=== PATIENT | male | born 1975 | race Caucasian/White ===

== ENCOUNTER 2021-01-13 14:03 | Emergency (ER) | payer OTHER, SELFPAY ==
[2021-01-13 14:22] VITALS: BP 165/89; PULSE 56; RESP 14; TEMP 36.6; O2SAT 97; BMI 28.7
[2021-01-13] MEDS: tetanus-diphtheria tox (adult) 0.5 mL SDV IM (14:44)
--- NOTE | 2021-01-13 14:44 | CT_ITS ---
WS: [id number] CT FACIAL BONES with contrast HISTORY: R eye injury TECHNIQUE: Images obtained from the supraorbital location through the mandible. Soft tissue and bone windows are reviewed. Coronal and sagittal reformats have also been submitted. DLP: 784.[address] scans at [facility] use at least one of these dose optimization techniques: automat ed exposure control; mA and/or kV adjustment per patient size (includes targeted exams where dose is matched to clinical indication); or iterative reconstruction. COMPARISON: None available. Complete rupture of the RIGHT globe. There is increased density within the entire globe and loss of t he normal contours. Cannot distinguish the normal lens or hanna of the orbit. There are also several small foci of increased density consistent with continuing hemorrhage with in the globe itself. There is proptosis of the globe. Globe is extending 10 mm beyond the normal position. There is a small irish unt of edema and enlargement within the optic nerve and the extraocular muscles. There is very mild s tranding in the retrobulbar fat but there is no large hematoma posteriorly. The lacrimal gland is amelia ng displaced and may actually be ruptured also. Moderate amount of soft tissue edema over the orbit. No fractures are identified. CT/CT facial bones w con [id number] IMPRESSION: 1. Complete rupture of the RIGHT globe with active hemorrhage within the globe . 2. Marked proptosis of the globe extending 10 mm beyond its normal position. 3. Possible injury to the lacrimal gland. 4. No fracture. Notified Sin Arciniega DO at 01/13/2021 3:24 PM.
[2021-01-13] MEDS: ceFAZolin 1,000 MG in sodium chloride 0.9% (plus) 50 ML 100 MG IV (14:45)
[2021-01-13] MEDS: ondansetron 2 mg/ML SDV 2 mL 4 MG IVP (14:46)
[2021-01-13 14:47] VITALS: RESP 17
[2021-01-13] MEDS: morphine 4 mg/mL SDV 1 mL IVP ×2 (14:47→16:40)
[2021-01-13 15:07] VITALS: RESP 18
[2021-01-13] MEDS: morphine 4 mg/mL SDV 1 mL 2 MG IVP (15:07)
[2021-01-13] MEDS: iohexol 300 mg/mL 100 mL Btl IV (15:11)
--- NOTE | 2021-01-13 15:13 | ED_ITS ---
HPI - Eye Problem General: Chief complaint: Eye Problems Stated complaint: EYE LAC Time Seen by Provider: 01/13/21 14:14 History of Present Illness: HPI Narrative: 45-year-old male presents to the emergency room with an injury to his right eye. He was using a pry bar at [employer] came loose and caught him just below the supraorbital ridge. He has no vision in the right eye and has significant amount of preop ptosis. There is also obvious hyphema and subconjunctival hematoma was no loss of consciousness he denies any other injury. No previous injury to that eye. chief complaint: eye pain and eye injury Onset (ago): hour(s) (Proximately 1 hour and 15 to 20 minutes prior to arrival) Onset description: sudden Duration: constant Location: left eye Eye Symptoms: decreased vision (Total loss of vision on arrival) Place: work Mechanism: direct trauma Severity: severe If Pain, Quality: sharp Context: trauma Associated symptoms: Reports headache(s); Denies cough, fever(s), nausea, neck pain, numbness, rhinorrhea, short of breath, vomiting or weakness Treatments Prior to Arrival: eyepatch Review of Systems Const: Denies: fever(s) ENMT: Denies: throat pain, ear or mastoid pain, nasal discharge or nasal congestion Card: Denies: chest pain, edema, dyspnea on exertion or orthopnea Resp: Denies: dyspnea, productive cough or non-productive cough GI: Denies: nausea or vomiting : Denies: flank pain, dysuria, urinary frequency or urinary urgency Musc: Denies: neck pain Skin/Breast: Denies: rash or pruritus Neuro: Reports: headache(s) Physical Exam Const: COMMON NORMALS: no acute distress GENERAL APPEARANCE: cooperative and comfortable ORIENTATION/CONSCIOUSNESS: Yes awake, Yes oriented to person, Yes oriented to place and Yes oriented to time HENMT: COMMON NORMALS: normocephalic and hearing grossly normal bilaterally HEAD & SCALP: normocephalic Eye: OTHER: Gross deformity of the right eye with a significant preop ptosis subconjunctival hemorrhage and hyphema. He is not able to even perceive light in the right eye. CT done. Lymph: LYMPHATIC: no lymphadenopathy noted and no lymphedema noted Resp: COMMON NORMALS: normal respiratory effort, No retractions, No use of accessory muscles and clear to auscultation bilaterally AUSCULTATION: clear to auscultation bilaterally Cardio: COMMON NORMALS: regular rate, regular rhythm and No murmurs present (Cardio) RATE: regular rate RHYTHM: regular rhythm GI: COMMON NORMALS: Soft to palpation and No hepatosplenomegaly present AUSCULTATION: Yes normoactive bowel sounds PALPATION: Yes Soft to palpation, No Tenderness to palpation present (GI), No Guarding due to palpation present (GI) and Yes No hepatosplenomegaly present Extremity: COMMON NORMALS: normal to inspection, capillary refill normal, no clubbing, cyanosis or edema, no calf tenderness and no pedal edema Neuro: SENSORIUM/ORIENTATION: Yes oriented to person, Yes oriented to place and Yes oriented to time Skin: COMMON NORMALS: no rashes or lesions noted GENERAL SKIN EXAM: no rashes or lesions noted Course Vital Signs: Vital signs: Vital Signs Temperature 98 F 01/13/21 14:22 Pulse Rate 63 01/13/21 16:52 Respiratory Rate 18 01/13/21 16:52 Blood Pressure 171/104 01/13/21 16:52 Pulse Oximetry 99 01/13/21 16:52 MDM - Eye Problem MDM Narrative: Medical decision making narrative: Globe rupture with no retro- orbital hemorrhage. He does have bleeding at actually active within the globe of the eye per the radiologist. Discussed with our on-call airport tower controller we do not have a capabilities to manage this here discussed with ophthalmology at [facility] they do not either and recommend that he go to a [place] setting we are able to get him transferred to [place] by ambulance discussed with the patient. Discharge Plan Discharge Patient Disposition: Transfer to ED Clinical Impression: Rupture of globe, Hyphema, Subconjunctival hemorrhage, Intraocular hemorrhage of right eye Prescriptions: No Action hydrocodone-acetaminophen 10-325 mg tablet 1 tab PO BID PRN (Reason: Pain) RF: 0 lisinopril 10 mg tablet 10 mg PO DAILY RF: 0 fluoxetine 20 mg capsule 20 mg PO DAILY RF: 0 rosuvastatin 20 mg tablet 20 mg PO BEDTIME RF: 0 eszopiclone 3 mg tablet 3 mg PO BEDTIME RF: 0 ibuprofen 200 mg Tablet 200 - 400 mg PO Q6H PRN (Reason: Pain) RF: 0 tramadol 50 mg tablet 50 mg PO BID PRN (Reason: Pain) RF: 0 Coding Level of Care Code ED Elevator Builder for Chg Fwd Exam Comprehensive
[2021-01-13 16:40] VITALS: RESP 18; O2SAT 99
[2021-01-13 16:52] VITALS: BP 171/104; PULSE 63; RESP 18; O2SAT 99
== END 2021-01-13 16:52 ==
PROVIDERS: Emergency Provider Family Medicine
DX: S05.31XA Ocular laceration without prolapse or loss of intraocular tissue, right eye, initial encounter (principal); S05.11XA Contusion of eyeball and orbital tissues, right eye, initial encounter; H11.31 Conjunctival hemorrhage, right eye; H44.811 Hemophthalmos, right eye; W22.8XXA Striking against or struck by other objects, initial encounter
CPT/HCPCS: 70487; 90471; 90714; 96365; 96375; 96376; 99285; J0690; J2270; J2405; Q9967

== ENCOUNTER → 2021-04-28 09:22 | Outpatient (BNVA) | payer SELFPAY | PROVIDERS: Visit Provider Dermatology | DX: Z01.89 Encounter for other specified special examinations (principal) ==